=== PATIENT | female | born 1970 | race Caucasian/White ===

== ENCOUNTER 2017-02-28 07:15 | Day surgery (SDC) | payer OTHER ==
[~2017-02-28] VITALS: Ht 175.3 cm; Wt 78.9 kg
[~2017-02-28 07:15] MED LIST: ATEN25TA PO; CYA1000I IM; Sodium Chloride LOK Flush 10 mL Syringe IV PRN; fentaNYL-PF 50 mCg/mL 2 mL Inj IVPUSH PRN
[2017-02-28 07:35] VITALS: BP 106/62; PULSE 58; RESP 16; O2SAT 100
[2017-02-28] MEDS: 0.9% Sodium Chloride 1,000 ML IV SCH ×2 (07:43→08:13)
[2017-02-28 08:27] VITALS: BP 117/69; PULSE 62; RESP 14; O2SAT 97
[2017-02-28 08:37] VITALS: BP 11/67; PULSE 66; RESP 16; O2SAT 97
--- NOTE | 2017-02-28 22:53 | ENDO ---
[address] [address] ENDOSCOPY PROCEDURE PATIENT: ROSIE CAPPS : 1970 MR#: [id number] ADMIT: 02/28/2017 JOB ID: [id number] PREOPERATIVE DIAGNOSIS: Personal history of colon polyps. POSTOPERATIVE DIAGNOSIS: Ascending colon polyp. PROCEDURE: Colonoscopy into terminal ileum with cold forceps polypectomy. SURGEON: Gino Pan MD. INDICATIONS: A 47-year-old female who two years ago had a colonoscopy for possible colitis. There was no evidence of colitis but she did have three adenomatous polyps. After discussing options with the patient, it was elected to proceed with a repeat colonoscopy. FINDINGS: She had a fair prep. She has diverticulosis on the left side resulting in residual fecaliths and turbid pools of stool. The scope was advanced into the cecum and into the terminal ileum. The terminal ileum was normal. The appendiceal orifice was identified and photographed. The scope was withdrawn over 10 minutes and 9 seconds using suction and irrigation as necessary. A solitary polyp in the distal ascending colon was identified. It was in the range of 3 mm. It was removed with a single biopsy without cautery. No other polyps were identified. Retroflexed views of the rectum revealed a small hypertrophic anal papilla. PROCEDURE IN DETAIL: The procedure and sedation plan was discussed with the patient and nursing staff, and a procedural time-out was held. She received 7 mg of Versed and 150 mcg of fentanyl. Olympus PCF H 180 AL video colonoscope was passed transanally, advanced to the cecum, withdrawn with the polypectomy done and results as discussed above. IMPRESSION: 1. Solitary ascending colon polyp. 2. Left-sided diverticulosis. 3. Small hypertrophied anal papilla. RECOMMENDATIONS: Colonoscopy five years.
--- NOTE | 2017-03-01 11:42 | PATH ---
SURGICAL PATHOLOGY Attending Physician:Jaye Mathis CASE STATUS: Signed Out PATIENT NAME: ROSIE CAPPS PID: [id number] : 1970 DATE COLLECTED:02/28/2017 17:31 SPECIMEN: Colon, Biopsy CLINICAL HISTORY: 1). ASCENDING COLON POLYP FINAL DIAGNOSIS: 1.ASCENDING COLON POLYP: TUBULAR ADENOMA. ICD10 CODE D12.2 GROSS DESCRIPTION: The specimen is received in one formalin filled container labeled with the patient's name, sublabeled "ascending colon polyp" and consists of a 0.4 x 0.3 x 0.2 CM portion of tissue which is entirely submitted in one cassette. 02/28/2017 DAC MICRO DESCRIPTION: See diagnosis. ICD-9 CODES: CPT CODES: 1: 31410 Electronically Signed Out Jose Mendes MD [facility] Pathology [facility] [address], [place] [address] Technical component performed at [facility], [facility] [address], [place], [address]
== END 2017-02-28 23:59 | disposition home or self-care (01) ==
LOC: END 07:15
PROVIDERS: ATTEND Surgery
DX: Z12.11 Encounter for screening for malignant neoplasm of colon (principal); D12.2 Benign neoplasm of ascending colon; K57.30 Diverticulosis of large intestine without perforation or abscess without bleeding; K62.89 Other specified diseases of anus and rectum; Z86.010 Personal history of colon polyps; Z83.71 Family history of colonic polyps; I10 Essential (primary) hypertension; D64.9 Anemia, unspecified; Z98.84 Bariatric surgery status
CPT/HCPCS: 45380; 99153; G0500; J2250; J3010; J7030